=== PATIENT | female | born 1960 | race Caucasian/White ===

== ENCOUNTER 2024-05-29 12:45 | Emergency (ER) | payer OTHER ==
[~2024-05-29] VITALS: Ht 167.6 cm; Wt 73.9 kg
--- OUTSIDE RECORDS SUMMARY | 2024-05-29 12:53 | XMS ---
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 Avi has no Care Guidelines for this patient. Lissa VISIT COUNT (12 MO.) 1 [facility] [place] [facility] TOTAL 2 NOTE: Visits indicate total known visits. ED/C VISIT TRACKING (12 MO.) 05/29/2024 12:47 [facility] TYPE: Emergency COMPLAINT: - [facility] COMPLAINT: - Dizziness DIAGNOSES: - Benign neoplasm of meninges, unspecified - Benign paroxysmal vertigo, left ear - Dizziness - Possible Stroke INPATIENT VISIT TRACKING (12 MO.) No inpatient visits to display in this time frame [email or web address]
[2024-05-29 13:06] LABS: BASOPHILS 0.6 % (0-2); EOSINOPHILS 1.8 % (0-6); HEMATOCRIT 42.8 % (35.0-50.0); HEMOGLOBIN 14.4 g/dL (12.0-18.0); LYMPHOCYTES 17.9 % (24-44); MCH 29.1 (27-36); MCHC 33.7 g/dl (30-36); MCV 86.4 fl (81-99); MONOCYTES 4.8 % (0-12); NEUTROPHILS 74.9 % (39-80); PLATELET COUNT 318 K/uL (140-440); RBC 4.96 M/ul (4.3-5.7); RDW 13.1 (10.5-15.0)
[2024-05-29 13:17] LABS: PARTIAL THROMBOPLASTIN TIME 25.1 Sec (22.9-41.3)
[2024-05-29 13:18] LABS: INR 0.91 (0.80-1.30); PROTIME 12.2 Sec (11.2-14.2)
[2024-05-29] MEDS ORDERED: LOSARTAN POTASS50 MG PO (13:20)
[2024-05-29] MEDS ORDERED: AZITHROMYCIN500 MG PO (13:20)
[2024-05-29] MEDS ORDERED: FLUTICASONE PRO16 GM NAS (13:20)
[2024-05-29] MEDS ORDERED: MECLIZINE HCL25 MG PO (13:20)
[2024-05-29] MEDS ORDERED: ALPRAZOLAM0.25 MG PO (13:21)
[2024-05-29] MEDS ORDERED: TRIAMTERENE-HC1 EAC3 PO (13:21)
[2024-05-29 13:27] LABS: ALBUMIN/GLOBULIN RATIO 0.95 (1.1-2.4); ALKALINE PHOSPHATASE 111 U/L (46-116); ALT (SGPT) 37 U/L (14-59); ANION GAP 10.2 (7-21); AST (SGOT) 21 U/L (15-37); BILIRUBIN, TOTAL 0.3 ng/dL (0.2-1.0); BUN/CREATININE RATIO 12.76 (6.0-28.6); CALCIUM 9.7 mg/dL (8.5-10.1); CARBON DIOXIDE 30 mmol/L (21-32); CHLORIDE 105 mmol/L (98-107); CREATININE, SERUM 0.94 mg/dL (0.55-1.02); GLOMERULAR FILTRATION RATE,EST 69 mL/min (>60); POTASSIUM 3.2 mmol/L (3.5-5.1); PROTEIN, TOTAL 8.2 g/dL (6.4-8.2); UREA NITROGEN 12 mg/dL (7-18)
[2024-05-29 15:53] VITALS: BP 142/90
--- NOTE | 2024-05-30 11:52 | EKG ---
[facility] [address] [place], [place] [address] Signed Normal sinus rhythm Nonspecific ST abnormality Prolonged QT Abnormal ECG No previous ECGs available Confirmed by Rony Brown DO ([id number]) on 05/30/2024 11:51:57 AM Electronically Signed By: RONY BROWN DO 05/30/24 115 PATIENT NAME: PAIGE FRIEND Luiza Electrocardiogram DATE OF : 64 PHYSICIAN: RONY BROWN DO REPORT #: [id number] REPORT IS CONFIDENTIAL AND NOT TO BE RELEASED WITHOUT AUTHORIZATION
== END 2024-05-29 15:53 | disposition home or self-care (01) ==
LOC: ED 12:45
PROVIDERS: Emergency Medicine
DX: R09.89 Other specified symptoms and signs involving the circulatory and respiratory systems (principal); I10 Essential (primary) hypertension; Z79.899 Other long term (current) drug therapy
CPT/HCPCS: 36415; 70450; 70496; 70498; 71045; 80053; 84484; 85025; 85610; 85730; 93005; 93010; 99285-25; Q3014; Q9967